=== PATIENT | female | born 1935 | race Caucasian/White ===

== ENCOUNTER → 2016-10-18 | Outpatient (CLI) | payer OTHER ==
[2016-10-18 15:44] LABS: BUN/CREATININE RATIO 24.54 (6-20); CALCIUM 10.3 mg/dL (8.7-10.7); SERUM ALBUMIN 4.5 g/dL (3.5-4.8)
[2016-10-18 17:25] LABS: HEMOGLOBIN A1C 6.58 % (4.2-6.0)
== END ==
LOC: MOB LAB 12:04
PROVIDERS: ATTEND Student in an Organized Health Care Education/Training Program
DX: E11.40 Type 2 diabetes mellitus with diabetic neuropathy, unspecified (principal); E03.9 Hypothyroidism, unspecified; L50.9 Urticaria, unspecified
CPT/HCPCS: 36415; 80053; 83036; 84443

== ENCOUNTER → 2016-10-19 | Outpatient (CLI) | payer OTHER ==
[2016-10-19 15:32] LABS: CREATININE, URINE 17.5 MG/DL (15-500)
== END ==
LOC: MOB LAB 14:08
PROVIDERS: ATTEND Student in an Organized Health Care Education/Training Program
DX: E11.40 Type 2 diabetes mellitus with diabetic neuropathy, unspecified (principal)
CPT/HCPCS: 82043

== ENCOUNTER → 2016-10-31 | Outpatient (CLI) | payer OTHER ==
[2016-10-31 18:28] LABS: BASOPHILS # (AUTO) 0.06 10*3/UL; BASOPHILS % (AUTO) 0.6 % (0-1); EOSINOPHILS # (AUTO) 0.64 10*3/UL; EOSINOPHILS % (AUTO) 6.4 % (0-8); HEMATOCRIT 41.9 % (37.0-47.0); HEMOGLOBIN 14.3 g/dL (12.0-16.0); LYMPHOCYTES # (AUTO) 3.19 10*3/uL; MEAN CORPUSCULAR HEMOGLOBIN 32.1 PG (27-31); MEAN CORPUSCULAR HGB CONC 34.1 g/dL (33-37); MEAN CORPUSCULAR VOLUME 94.2 FL (81-99); MEAN PLATELET VOLUME 9.1 FL (7.4-12.2); MONOCYTES # (AUTO) 0.75 10*3/UL (0.3-0.8); MONOCYTES % (AUTO) 7.5 % (5-15); NEUTROPHILS # (AUTO) 5.33 10*3/UL; NEUTROPHILS % (AUTO) 53.3 % (50-80); RED BLOOD COUNT 4.45 10^6/uL (4.20-5.40)
[2016-10-31 18:32] LABS: PLATELET MORPHOLOGY COMMENT NORMAL MORPHOLOGY (NORM); RBC MORPHOLOGY COMMENT NORMAL MORPHOLOGY (NORM); WBC MORPHOLOGY COMMENT NORMAL MORPHOLOGY (NORM)
[2016-10-31 18:37] LABS: BUN/CREATININE RATIO 22.5 (6-20); CALCIUM 9.9 mg/dL (8.7-10.7); SERUM ALBUMIN 4.5 g/dL (3.5-4.8)
== END ==
LOC: MOB LAB 18:08
PROVIDERS: ATTEND Physician Assistant
DX: L29.8 Other pruritus (principal); L28.2 Other prurigo
CPT/HCPCS: 36415; 80053; 85025

== ENCOUNTER 2017-05-01 23:17 | Inpatient (IN) ==
--- NOTE | 2017-05-01 23:26 | PDOC ---
Nausea/Vomiting/Diarrhea HPI - General Chief Complaint: Nausea / Vomiting / Diarrhea Stated Complaint: nausea/ dry hieves Date Seen by Provider: 05/01/17 Time Seen by Provider: 23:15 Source: POSITIVE: Patient Exam Limitations: POSITIVE: No limitations Nurse's Notes Reviewed & Considered: Yes - History of Present Illness Initial Comments: This is a pleasant 81-year-old female complaining of nausea vomiting and abdominal pain. Patient with nausea that has been ongoing since last night with vomiting and now dry heaves. Does have a headache, denies sore throat, no chest pain or shortness of breath, no hematuria or dysuria, she did have an episode of diarrhea yesterday. sHe does have myalgias, she states she has subjective fevers, chills and sweats. Body Location Affected: REPORTS: Head, Abdomen Timing: REPORTS: Constant Duration: <24 hours Severity: Moderate Quality: REPORTS: Aching, Cramping Abdominal Pain Onset Location: REPORTS: RUQ Abdominal Pain Radiation: REPORTS: Epigastric, Periumbilical Context: REPORTS: None Modifying Factors: improves with: Nothing Associated Symptoms: REPORTS: Vomiting, Diarrhea, Cramping, Epigastric Pain, RUQ Pain Similar Symptoms Previously: No Recent Care Received: REPORTS: Denies Any Prior Injuries Related to Current Complaint?: No - Patient Home Medications Home Medications: Home Medications Calcium Carbonate/Vitamin D3 [Calcium 500 + Vit D Caplet] 1 tab PO DAILY Multivitamin [One Daily Multivitamin] 1 tab PO DAILY 09/28/12 Ascorbic Acid [Vitamin C] 1,000 mg PO QD tab 06/09/15 [place]-3 Fatty Acids [Fish Oil] 300 mg PO QD cap 06/09/15 Celecoxib [Celebrex] 1 cap PO BID #180 cap 03/15/16 Metformin HCl 1 tab PO BID #180 tab 03/15/16 Cranberry 400 mg PO DAILY 06/08/16 Darifenacin Hydrobromide [Enablex] 15 mg PO DAILY #30 tab 10/18/16 Levothyroxine Sodium [Synthroid] 1 tab PO QD #90 tab 02/19/17 Lisinopril 1 tab PO DAILY #90 tab 02/19/17 Pravastatin Sodium 1 tab PO DAILY #90 tab 03/26/17 Metformin HCl 1 tab PO BID #180 tab 03/29/17 - Patient Allergies Allergies/Adverse Reactions: Allergies 3 Allergy/AdvReac Type Severity Reaction Status Date / Time No Known Allergies Allergy Verified 05/01/17 23:29 Past Medical History - heen HEENT History: Hard of Hearing, Dentures/Partials Cardiovascular History: Hyperlipidemia Additional Cardiovasular History: CARADIOMEGALY Respiratory History: Denies History Gastrointestinal History: Peptic Ulcer Disease, Gallbladder Disease, Hepatitis Additional Gastrointestinal History: HEPATITIS TREATED IN 1958 (hep A, vomiting , diarhhea Genitourinary History: Incontinence Endocrine History: Type 2 Diabetes (oral), Hypothyroidism Musculoskeletal History: Arthritis, Osteoporosis, Back Pain, Back Injury 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 BACK SURGERY (L3-L5 FUSION), NECK SURGERY, CHOLECYSTECTOMY/APPY Anesthesia Reactions: No Malignant Hyperthermia: No Significant Family History: Heart disease, Cancer, Diabetes, Hypertension, Seizures ROS - Limitations ROS Limitations: No Limitations Constitution: REPORTS: Chills, Fever, Diaphoresis Cardiovascular: REPORTS: Denies Cardiac Symptoms Respiratory: REPORTS: Denies Resp Symptoms Neurological: REPORTS: Headache Gastrointestinal: REPORTS: Abdominal Pain, Nausea, Vomitting, Diarrhea Endocrine: REPORTS: Denies Symptoms Musculoskeletal: REPORTS: Muscle Aches Genitourinary: REPORTS: Denies Symptoms Eyes: REPORTS: Denies Symptoms ENT: REPORTS: Denies Symptoms Skin: REPORTS: Denies Skin Symptoms Lympathic: REPORTS: Denies Lympathic Symptoms Immunologic: POSITIVE: Denies Symptoms Psychiatric: POSITIVE: Denies Psych Symptoms Nausea/Vomiting/Diarrhea Exam - General Appearance General Appearance: POSITIVE: Alert, Cooperative, No Evidence of Trauma, Moderate Distress - HEENT HEENT: POSITIVE: Head Inspection Nml, Eyes Inspection Nml, Ears Inspection Nml, Nose Inspection Nml, Oral/Dental Inspect. Nml, Pharynx Inspect. Nml, PERRL, EOMI - Neck Neck: POSITIVE: Supple, Normal Inspection, Non Tender - Respiratory Respiratory: POSITIVE: No Respiratory Distress, Breath Sounds Normal, Chest Non- Tender - Cardiovascular Cardiovascular: POSITIVE: Regular Rate and Rhythm, Heart Sounds Normal, Equal Pulses, Strong Pulses Peripheral Pulses: Radial (R): 4+, Radial (L): 4+, Dorsalis-pedis (R): 4+, Dorsalis-pedis (L): 4+ - Chest Chest: POSITIVE: Non Tender - Abdomen Abdomen: Soft: (All Quadrants), Normal Bowel Sounds: (All Quadrants), Denies Tenderness: (RLQ), (LLQ), Tenderness Noted: (RUQ), (LUQ) N/V/D Progress - Results Reviewed by me Xrays/CTs/US Reviewed by me: Yes Discussed with Radiologist: Yes Lab Results Reviewed by Me: Yes CBC and BMP: 05/01/17 23:25 05/01/17 23:25 - Patient's Progress Pain Medication Addressed: POSITIVE: Yes Re-examine Time: 02:11 Status: POSITIVE: Improved MDM / ED Course: Patient was examined, an IV started, blood drawn and sent to the lab for studies , CT scan of her abdomen was obtained. Findings: CBC shows a white count of 21. Comprehensive metabolic panel reveals and ALT of 53. Lipase and amylase are normal. Magnesium is low at 1.3. CT scan of her abdomen shows acute pancreatitis. Assessment: Abdominal pain with an early acute pancreatitis. Plan: Admission, nothing by mouth, pain medication, IV fluids. - Consult Consult (If Yes, Name of Consulting MD & Time Called): Yes (Dr. Jimenes. 0155 hr) Consulting MD will see pt:: POSITIVE: [facility] [place] Admit Counseled: POSITIVE: Patient, Family, RE: Lab Results, RE: Radiology Results, RE : DX Patient Care Time - Estimated PCT Patient Care Time (In Minutes): 45 Vital Signs - Recent Vital Signs Vital Signs: Vital Signs (Last 8 hours) Temp Pulse Resp BP Pulse Ox 05/01/17 23:22 100.8 F H 110 H 18 152/86 92 05/01/17 23:17 97.8 F 119 H 18 152/86 91 - VS Reviewed Vital Signs Reviewed: Yes Discharge Clinical Impression: Pancreatitis Discharge Disposition: Admit to Inpatient Condition: Fair Follow Up With: BENIGNO ARROYO [Primary Care Provider] - Date Decision to Admit to Inpatient: 05/02/17 Time Decision to Admit to Inpatient: 01:55
[2017-05-01] MEDS ORDERED: Sodium Chloride 0.9% 1,000 ML ONE (23:27)
[2017-05-01] MEDS ORDERED: ONDANSETRON 4 MG/2 ML VIAL IVP ONE (23:27)
[2017-05-01] MEDS ORDERED: MORPHINE SULFATE 4 MG/1 ML IVP ONE (23:27)
[2017-05-01] MEDS ORDERED: Sodium Chloride 0.9% 1,000 ML PRIMARY IV ONE (23:27)
[2017-05-01 23:41] LABS: BASOPHILS # (AUTO) 0.05 10*3/UL; BASOPHILS % (AUTO) 0.2 % (0-1); EOSINOPHILS # (AUTO) 0.04 10*3/UL; EOSINOPHILS % (AUTO) 0.2 % (0-8); Hemoglobin [HGB] 14.1 g/dL (12.0-16.0); LYMPHOCYTES # (AUTO) 1.74 10*3/uL; MEAN CORPUSCULAR HEMOGLOBIN 32.6 PG (27-31); MEAN CORPUSCULAR HGB CONC 34.4 g/dL (33-37); MEAN CORPUSCULAR VOLUME 94.7 FL (81-99); MEAN PLATELET VOLUME 9.5 FL (7.4-12.2); MONOCYTES # (AUTO) 1.41 10*3/UL (0.3-0.8); MONOCYTES % (AUTO) 6.8 % (5-15); NEUTROPHILS # (AUTO) 17.59 10*3/UL; NEUTROPHILS % (AUTO) 84.3 % (50-80); RED BLOOD COUNT 4.33 10^6/uL (4.20-5.40)
[2017-05-01 23:46] LABS: BLOOD UREA NITROGEN 20 mg/dL (7-22); MAGNESIUM 1.5 mg/dL (1.6-2.4); SERUM ALBUMIN 4.4 g/dL (3.5-4.8)
[2017-05-01 23:48] LABS: PLATELET MORPHOLOGY COMMENT NORMAL MORPHOLOGY (NORM); RBC MORPHOLOGY COMMENT NORMAL MORPHOLOGY (NORM); WBC MORPHOLOGY COMMENT NORMAL MORPHOLOGY (NORM)
[2017-05-02] MEDS ORDERED: Magnesium Sulfate 2gm (Premix) 2 GM/50 ML BAG IV ONE (00:05)
--- NOTE | 2017-05-02 01:33 | DI ---
PROCEDURE: CT ABDOMEN + PELVIS With Contrast HISTORY: 81-year-old female with abdominal pain and nausea. COMPARISON: CT abdomen and pelvis 09/27/2012 TECHNIQUE: After administration of 75 mL of Isovue-300 contrast material intravenously, CT imaging was obtained through the abdomen and pelvis. Coronal and sagittal reformations were performed. FINDINGS: Lung bases: Bilateral atelectasis. There are atherosclerotic calcifications of the thoracic aorta and coronary arteries. Abdomen: The liver demonstrates diffuse low density, consistent with hepatic steatosis. The liver is moderately enlarged with right lobe measuring approximately 19 centimeters in craniocaudal dimension. Cholecystectomy clips are identified at the gallbladder fossa. Unchanged splenic calcifications are likely related to prior granulomatous exposure. Peripancreatic stranding and trace free fluid adjacent to the pancreatic head and uncinate process. Associated mesenteric stranding and trace free fluid as well. Findings are likely due to acute pancreatitis. There are a few associated small and mildly enlarged adjacent lymph nodes. There is no evidence of pancreatic fluid collection at this time. The left adrenal gland is somewhat nodular, but unchanged. The right adrenal gland is unremarkable. Evaluation of the kidneys is within normal limits. Evaluation of the GI tract is limited by lack of distention and retained stool. No bowel obstruction. The appendix is not reliably identified. There are multiple colonic diverticula. No free air. The abdominal vasculature demonstrates atherosclerotic calcifications. Pelvis: The urinary bladder is unremarkable for degree of distension. The uterus and bilateral nonenlarged ovaries are identified. No free fluid, free air or significant pelvic adenopathy. The pelvic vasculature demonstrates atherosclerotic calcifications. Laxity of the pelvic floor. There is an approximately 3.5 centimeter fat-containing periumbilical hernia. Bones: Chronic posttraumatic deformity of the left eleventh rib posteriorly. Degenerative changes in the spine and pelvis. Lumbosacral fusion and laminectomy, similar to prior, without evidence of acute hardware complication. IMPRESSION: 1. Evidence of acute pancreatitis. No evidence of pancreatic fluid collection. 2. Colonic diverticulosis without CT evidence of acute diverticulitis. 3. Hepatic steatosis. Moderate hepatomegaly. 4. Other findings as detailed above.
[2017-05-02 01:51] LABS: LIPASE 92 IU/L (23-300)
[2017-05-02] MEDS ORDERED: ONDANSETRON 4 MG/2 ML VIAL IVP PRN (02:52)
[2017-05-02] MEDS ORDERED: NORMAL SALINE 10 ML SYRINGE FLUSH IVP PRN (02:52)
[2017-05-02] MEDS ORDERED: LIDOCAINE W/ SODIUM BICARB 0.5 ML SYR SUBD PRN (02:52)
--- NOTE | 2017-05-02 03:02 | PDOC ---
HPI - History of Present Illness Date and Time of Service: 05/02/2017 3 AM Chief Complaint: Abdominal pain and dry heaving of one day duration and diarrhea for 2 days ago History of Present Illness: This is an 81 years old female with medical history significant for history of diabetes on Glucophage, hypothyroidism and hypercholesterolemia who came into the hospital with history of diarrhea that started 2 days ago she had about 4 bowel movements where liquid, no blood then last night started to have abdominal pain felt in the right upper quadrant and goes to the back was severe and associated with dry heaving pain persisted and because of that she came into the ER. She thought that she also had some fever but she didn't check her temperature and because of that she came into the ER. In the ER she was given fluids evaluation revealed elevated white count and elevated lactate and a CT of the abdomen showed peripancreatic inflammatory changes suggestive of pancreatitis and also there is some mesenteric stranding and she was admitted. She said the pain when she came in was severe but she rates her pain at the time I saw her was 4 out of 10 and she is denying other symptoms. The last time she had a bowel movement was yesterday morning. There was no bleeding. Past Medical History Medical History: 1. Diabetes. 2. Hypothyroidism. 3. Hypercholesterolemia. 4. Osteoporosis. 5. History of hepatitis A in the 50s. 6. History of previous pancreatitis Surgical History: 1. Cholecystectomy. 2. Appendectomy. 3. Recent right cataract surgery Family History: Reviewed an Not Pertinent Past Social History: She used to smoke, doesn't drink and no drugs. Tobacco Use: Former Smoker In the Past 12 Months, Have Used or Abuse Any of the Following Substance: None Alcohol Use: None Medication / Allergies Home Medications: Home Medications Medication Instructions Recorded Confirmed Type Calcium Carbonate/Vitamin D3 1 tab PO DAILY 09/28/12 05/01/17 History [Calcium 500 + Vit D Caplet] Multivitamin [One Daily 1 tab PO DAILY 09/28/12 05/01/17 History Multivitamin] Ascorbic Acid [Vitamin C] 1,000 mg PO QD tab 06/09/15 05/01/17 History [place]-3 Fatty Acids [Fish Oil] 300 mg PO QD cap 06/09/15 05/01/17 History Celecoxib [Celebrex] 1 cap PO BID #180 cap 03/15/16 05/01/17 History Metformin HCl 1 tab PO BID #180 tab 03/15/16 06/08/16 Clinic Cranberry 400 mg PO DAILY 06/08/16 05/01/17 History Darifenacin Hydrobromide [Enablex] 15 mg PO DAILY #30 tab 10/18/16 05/01/17 Rx Levothyroxine Sodium [Synthroid] 1 tab PO QD #90 tab 02/19/17 05/01/17 Rx Lisinopril 1 tab PO DAILY #90 tab 02/19/17 05/01/17 Rx Pravastatin Sodium 1 tab PO DAILY #90 tab 03/26/17 05/01/17 Clinic Metformin HCl 1 tab PO BID #180 tab 03/29/17 05/01/17 Clinic Allergies/Adverse Reactions: Allergies 3 Allergy/AdvReac Type Severity Reaction Status Date / Time No Known Allergies Allergy Verified 05/02/17 06:45 Review of Systems - Review of Systems All Systems: Reviewed & No Additional Complaints Except as Stated Exam - Vitals Vital Signs: Vital Signs Oxygen Flow Rate 2 Oxygen Delivery Method Nasal Cannula Height 5 ft 2 in Weight 177 lb 2 oz - General General Appearance: No Acute Distress, Cooperative, Obese - Head Head Exam: Normal Inspection, Atraumatic - Eye Eye Exam: POSITIVE: Normal Appearance - ENT ENT Exam: POSITIVE: Normal Exam - Neck Neck Exam: Normal Inspection - Respiratory Respiratory Exam: POSITIVE: Clear to Auscultation - Bilaterally - Cardiovascular Cardiovascular Exam: POSITIVE: RRR - GI/Abdominal GI/Abdominal Exam: POSITIVE: Normal Bowel Sounds, Soft Additional GI/Abdominal Exam Details: Abdomen is soft there is some tenderness in the right upper quadrant there is no rebound or rigidity. Bowel sounds present - Rectal Rectal Exam: POSITIVE: Deferred - External Exam: POSITIVE: Deferred - Extremities Extremities Exam: POSITIVE: Normal Inspection - Back Back Exam: POSITIVE: Normal Inspection - Neurological Neurological Exam: POSITIVE: Alert, Oriented x 3, CN II-XII Intact, Speech Intact / Clear, Moves All Extremities Equally - Psychiatric Psychiatric Exam: POSITIVE: Normal Affect Results - Labs CBC and BMP: 05/02/17 07:07 05/02/17 07:07 - Imaging Status: Report Reviewed by Me (CT showed evidence of acute pancreatitis. No evidence of a Fluid collection. Colonic diverticulosis without CT evidence of acute diverticulitis. Hepatic steatosis. Moderate hepatomegaly) Assessment and Plan - Patient Problems (1) Pancreatitis Current Visit: Yes Status: Acute Comment: The CT raises possibility of pancreatitis however the lipase is normal. So I am not sure about the accuracy of the diagnosis. I think will give her fluid repeat her labs including lipase is in the morning. Code(s): K85.90 - Acute pancreatitis without necrosis or infection, unspecified (2) Sepsis Current Visit: Yes Status: Acute Comment: Her white count is elevated, she is tachycardic and elevated lactate raises the possibility of sepsis this may be secondary to pancreatitis but as I said the normal lipase doesn't go with it, she doesn't drink and her gallbladder was removed before. I think will give her fluid and I think will start her on antibiotics, blood culture was taken will send UA and culture if indicated. Will repeat her labs may consult surgery in the morning. Will send stool culture and stool for C. difficile Code(s): A41.9 - Sepsis, unspecified organism (3) Diabetes Current Visit: Yes Status: Acute Comment: She is on metformin but will hold it as she got some contrast will keep an eye on her blood sugar. Code(s): E11.9 - Type 2 diabetes mellitus without complications
[2017-05-02] MEDS: Sodium Chloride 0.9% 1,000 ML PRIMARY IV SCH ×3 (04:00→21:20)
[2017-05-02] MEDS: Piperacillin/Tazobactam Inj 3.375 GM in Sodium Chloride 0.9% 100 ML IV SCH ×2 (04:00→09:31)
[2017-05-02] MEDS: MORPHINE SULFATE 2 MG/1 ML IVP PRN (04:19)
[2017-05-02 05:08] LABS: BILIRUBIN,URINE NEGATIVE (NEG); CLARITY,URINE CLEAR (CLEAR); COLOR,URINE YELLOW (Y); GLUCOSE, URINE (UA) NEGATIVE (NEG); NITRATE,URINE NEGATIVE (NEG); OCCULT BLOOD,URINE NEGATIVE (NEG); PROTEIN,URINE NEGATIVE (NEG); UROBILINOGEN,URINE 0.2 EU/dL (0.2)
[2017-05-02 05:14] LABS: URINE SAMPLE TYPE CLEAN CATCH URINE
[2017-05-02 07:14] LABS: BASOPHILS # (AUTO) 0.03 10*3/UL; BASOPHILS % (AUTO) 0.2 % (0-1); EOSINOPHILS # (AUTO) 0.24 10*3/UL; EOSINOPHILS % (AUTO) 1.8 % (0-8); Hematocrit [HCT] 38.3 % (37.0-47.0); Hemoglobin [HGB] 12.9 g/dL (12.0-16.0); LYMPHOCYTES # (AUTO) 1.59 10*3/uL; MEAN CORPUSCULAR HEMOGLOBIN 32.3 PG (27-31); MEAN CORPUSCULAR HGB CONC 33.7 g/dL (33-37); MEAN PLATELET VOLUME 9.4 FL (7.4-12.2); MONOCYTES % (AUTO) 6.1 % (5-15); NEUTROPHILS # (AUTO) 10.51 10*3/UL; NEUTROPHILS % (AUTO) 79.6 % (50-80); RED BLOOD COUNT 3.99 10^6/uL (4.20-5.40)
[2017-05-02 07:22] LABS: PLATELET MORPHOLOGY COMMENT NORMAL MORPHOLOGY (NORM); RBC MORPHOLOGY COMMENT NORMAL MORPHOLOGY (NORM); WBC MORPHOLOGY COMMENT NORMAL MORPHOLOGY (NORM)
[2017-05-02 07:25] LABS: BLOOD UREA NITROGEN 18 mg/dL (7-22); SERUM ALBUMIN 3.7 g/dL (3.5-4.8)
[2017-05-02 07:42] LABS: LIPASE 106 IU/L (23-300)
--- NOTE | 2017-05-02 09:54 | CONSULT ---
Consult Note - Consult Consult Date: 05/02/17 Reason for Consult: PreOp Consulation : General Surgery Requesting Physician: Dr. Jimenes Primary Care Provider: Power Bonner MD - History of Present Illness History of Present Illness: This is a-year-old female who is admitted to the hospital last night for abdominal pain and nausea and vomiting. Patient states that she this all started 3 days ago with diarrhea. She is having 3-4 loose stools in a row. She denies any blood in the diarrhea. It was not black or tarry looking. This is now that point was she developed epigastric abdominal pain radiating straight to her back. This is a dull pain. She says is definitely different when she had pancreatitis. She then developed dry heaves. She states she has not actually thrown up. She started running a temperature. She came in having a 20,000 white count. Her lactic acid was elevated. She is admitted start IV fluids and antibiotics. Today her pain is better. They have not recorded the temperature since emergency department. Her white count is down to 13,000 and lactic acid is 2.3 which is lower than was last night. Her amylase and lipase are normal. CT scan shows some stranding around the pancreas. Review of Systems - Review of Systems All Systems: Reviewed & No Additional Complaints Except as Stated Past Medical History Medical History: 1. Diabetes. 2. Hypothyroidism. 3. Hypercholesterolemia. 4. Osteoporosis. 5. History of hepatitis A in the 50s. 6. History of previous pancreatitis Surgical History: 1. Cholecystectomy. 2. Appendectomy. 3. Recent right cataract surgery Family History: Reviewed an Not Pertinent Past Social History: She used to smoke, doesn't drink and no drugs. Tobacco Use: Former Smoker In the Past 12 Months, Have Used or Abuse Any of the Following Substance: None Alcohol Use: None Medication / Allergies Home Medications: Home Medications Medication Instructions Recorded Confirmed Type Calcium Carbonate/Vitamin D3 1 tab PO DAILY 09/28/12 05/01/17 History [Calcium 500 + Vit D Caplet] Multivitamin [One Daily 1 tab PO DAILY 09/28/12 05/01/17 History Multivitamin] Ascorbic Acid [Vitamin C] 1,000 mg PO QD tab 06/09/15 05/01/17 History [place]-3 Fatty Acids [Fish Oil] 300 mg PO QD cap 06/09/15 05/01/17 History Celecoxib [Celebrex] 1 cap PO BID #180 cap 03/15/16 05/01/17 History Metformin HCl 1 tab PO BID #180 tab 03/15/16 06/08/16 Clinic Cranberry 400 mg PO DAILY 06/08/16 05/01/17 History Darifenacin Hydrobromide [Enablex] 15 mg PO DAILY #30 tab 10/18/16 05/01/17 Rx Levothyroxine Sodium [Synthroid] 1 tab PO QD #90 tab 02/19/17 05/01/17 Rx Lisinopril 1 tab PO DAILY #90 tab 02/19/17 05/01/17 Rx Pravastatin Sodium 1 tab PO DAILY #90 tab 03/26/17 05/01/17 Clinic Metformin HCl 1 tab PO BID #180 tab 03/29/17 05/01/17 Clinic Allergies/Adverse Reactions: Allergies 3 Allergy/AdvReac Type Severity Reaction Status Date / Time No Known Allergies Allergy Verified 05/02/17 06:45 Results - Labs CBC and BMP: 05/02/17 07:07 05/02/17 07:07 Additional Lab Results: 05/01/17 05/01/17 05/01/17 23:25 23:25 23:25 WBC 20.88 H Hgb 14.1 Hct 41.0 Sodium 135 Potassium 4.6 Chloride 99 Carbon Dioxide 21 L Anion Gap 15 BUN 20 Creatinine 1.0 Glucose 231 H Lactic Acid Calcium 10.0 Magnesium 1.5 L Total Bilirubin 0.6 AST 35 ALT 53 H Alkaline Phosphatase 76 Total Protein 7.3 Amylase 72 Lipase 92 05/02/17 00:07 WBC Hgb Hct Sodium Potassium Chloride Carbon Dioxide Anion Gap BUN Creatinine Glucose Lactic Acid 3.1 H Calcium Magnesium Total Bilirubin AST ALT Alkaline Phosphatase Total Protein Amylase Lipase Exam - Vitals Vital Signs: Vital Signs Temperature 98.4 F Temperature Source Oral Pulse Rate [Pulse Oximeter 99 Right] Respiratory Rate 20 Blood Pressure [Left Arm] 124/58 Pulse Ox 91 Oxygen Flow Rate 2 Oxygen Delivery Method Nasal Cannula Height 5 ft 2 in Weight 177 lb 2 oz - General General Appearance: No Acute Distress, Cooperative - Head Head Exam: Normocephalic - Neck Neck Exam: Full ROM - Respiratory Respiratory Exam: POSITIVE: Clear to Auscultation - Bilaterally, Breathing Non Labored - Cardiovascular Cardiovascular Exam: POSITIVE: RRR, No Murmur, No Clicks, No Gallops - GI/Abdominal GI/Abdominal Exam: POSITIVE: Normal Bowel Sounds, Non Tender, Non Distended, Soft, No Masses, No Hepatomegaly, No Splenomegaly - Rectal Rectal Exam: POSITIVE: Deferred Assessment and Plan - Patient Problems (1) Abdominal pain Current Visit: Yes Status: Acute Code(s): R10.9 - Unspecified abdominal pain (2) Diarrhea Current Visit: Yes Status: Acute Code(s): R19.7 - Diarrhea, unspecified - Assessment / Plan Additional Assessment/Plan Details: At this point do not think patient has acute surgical abdomen. We'll need to review the CAT scans with Dr. Noel. Given the history of the diarrhea persisted abdominal pain I think the patient picked up a gastrointestinal bug and then proceeded to get dehydrated. This possibility she developed mild mesenteric ischemia. I do not think is a full on infarction. Patient may also have a duodenal ulcer that has perforated retroperitoneally. I would continue antibiotics and IV fluids. Would start a PPI. Should get a stool cultures and also C. difficile
[2017-05-02] MEDS: cefTRIAXone Inj 2 GM in Sodium Chloride 0.9% 100 ML IV SCH (10:03)
[2017-05-02] MEDS: Pantoprazole Inj 40 MG in Normal Saline Flush 10 ML IVP SCH (10:39)
[2017-05-02] MEDS: metroNIDAZOLE 500mg (Premix) 500 MG/100 ML BAG IV SCH ×2 (10:47→17:50)
[2017-05-02] MEDS: traMADol 50 MG TABLET PO PRN (13:51)
[2017-05-02] MEDS: DIFLUPREDNATE RIGHT EYE SCH (20:53)
[2017-05-02] MEDS: Pravastatin Tab 20 MG TAB PO SCH (20:53)
[2017-05-03] MEDS: metroNIDAZOLE 500mg (Premix) 500 MG/100 ML BAG IV SCH ×3 (02:02→17:19)
[2017-05-03] MEDS: Sodium Chloride 0.9% 1,000 ML PRIMARY IV SCH ×3 (04:49→18:02)
[2017-05-03] MEDS: LEVOTHYROXINE 25 MCG TABLET PO SCH (04:50)
[2017-05-03 05:33] LABS: BASOPHILS # (AUTO) 0.03 10*3/UL; BASOPHILS % (AUTO) 0.3 % (0-1); EOSINOPHILS % (AUTO) 5.8 % (0-8); Hematocrit [HCT] 38.5 % (37.0-47.0); Hemoglobin [HGB] 12.8 g/dL (12.0-16.0); LYMPHOCYTES # (AUTO) 2.49 10*3/uL; MEAN CORPUSCULAR HEMOGLOBIN 32.5 PG (27-31); MEAN CORPUSCULAR HGB CONC 33.2 g/dL (33-37); MEAN CORPUSCULAR VOLUME 97.7 FL (81-99); MEAN PLATELET VOLUME 9.9 FL (7.4-12.2); MONOCYTES # (AUTO) 0.84 10*3/UL (0.3-0.8); MONOCYTES % (AUTO) 9.7 % (5-15); NEUTROPHILS # (AUTO) 4.78 10*3/UL; NEUTROPHILS % (AUTO) 55.3 % (50-80); RED BLOOD COUNT 3.94 10^6/uL (4.20-5.40)
[2017-05-03 05:40] LABS: BLOOD UREA NITROGEN 13 mg/dL (7-22); BUN/CREATININE RATIO 14.44 (6-20); SERUM ALBUMIN 3.5 g/dL (3.5-4.8)
[2017-05-03 05:51] LABS: PLATELET MORPHOLOGY COMMENT NORMAL MORPHOLOGY (NORM); RBC MORPHOLOGY COMMENT NORMAL MORPHOLOGY (NORM); WBC MORPHOLOGY COMMENT NORMAL MORPHOLOGY (NORM)
--- NOTE | 2017-05-03 08:26 | PDOC(PROG) ---
Date and Time of Service: 05/03/2017 8:25 AM Interval History: Subjective She said the pain that brought her here seemed to be improved but today she feels bloated. She said she always had some pain in right upper quadrant but it was severe when she came on the day of admission and that seemed to be improved. But what is bothering her the feeling of being bloated and she didn' t have a bowel movement since being here. Objective : Data - Labs CBC and BMP: 05/03/17 04:55 05/03/17 04:55 Objective : Exam - General General Appearance: No Acute Distress, Cooperative - Head Head Exam: Normal Inspection - Eye Eye Exam: Normal Appearance - ENT ENT Exam: Normal Exam - Neck Neck Exam: Normal Inspection - Respiratory Respiratory Exam: Clear to Auscultation - Bilaterally - Cardiovascular Cardiovascular Exam: RRR - GI/Abdominal Additional GI/Abdominal Exam Details: Abdomen is still soft there is some tenderness in the epigastrium and mid right abdomen. Bowel sound present. There is some distention noted - Rectal Rectal Exam: Deferred - External Exam: Deferred - Extremities Extremities Exam: Normal Inspection - Back Back Exam: Normal Inspection - Neurological Neurological Exam: Alert, Oriented x 3, CN II-XII Intact, Moves All Extremities Equally - Psychiatric Psychiatric Exam: Normal Affect - Integumentary Integumentary Exam: Normal Color Assessment and Plan - Patient Problems (1) Pancreatitis Current Visit: Yes Status: Acute Comment: Not sure whether she had pancreatitis as her lipase remained normal. There is stranding noted in the mesentry when spoke with the radiologist Dr. Noel yesterday this inflammation either from the pancreas or from the duodenum. She did tolerate oral clear liquids will cut back on the fluid. However there is distention the abdomen today so I think will repeat her CT. Dr. Noel also did suggest that we probably need to repeat the CAT scan in few weeks postdischarge as a follow-up. Code(s): K85.90 - Acute pancreatitis without necrosis or infection, unspecified (2) Sepsis Current Visit: Yes Status: Acute Comment: Seems to resolve. Her white count is down to normal. Continue IV antibiotics for another day. Code(s): A41.9 - Sepsis, unspecified organism (3) Diabetes Current Visit: Yes Status: Acute Comment: Continue holding metformin and she had contrast yesterday Code(s): E11.9 - Type 2 diabetes mellitus without complications
[2017-05-03] MEDS: Pantoprazole Inj 40 MG in Normal Saline Flush 10 ML IVP SCH (08:32)
[2017-05-03] MEDS: DIFLUPREDNATE RIGHT EYE SCH ×2 (08:45→20:15)
[2017-05-03] MEDS: cefTRIAXone Inj 2 GM in Sodium Chloride 0.9% 100 ML IV SCH (08:55)
[2017-05-03] MEDS ORDERED: FATTY ACIDS PO SCH (09:00)
[2017-05-03] MEDS ORDERED: OMEGA PO SCH (09:00)
[2017-05-03] MEDS: traMADol 50 MG TABLET PO PRN ×2 (09:03→19:28)
--- NOTE | 2017-05-03 11:40 | PDOC(PROG) ---
Date and Time of Service: 05/03/2017 1140 Interval History: Patient states that she still having right upper quadrant abdominal pain. No fevers. She's tolerating diet Objective : Data - Labs CBC and BMP: 05/03/17 04:55 05/03/17 04:55 - Vital Signs Vital Signs and I&O: Vital Signs - Last Taken Temperature 98 F 05/03/17 11:29 Pulse Rate 87 05/03/17 11:29 Respiratory Rate 18 05/03/17 11:29 Blood Pressure 118/56 05/03/17 11:29 Pulse Ox 98 05/03/17 11:29 Intake and Output (24hr x 4 totals) 05/01/17 05/02/17 05/03/17 05/04/17 05:59 05:59 05:59 05:59 Intake Total 5701 / 5701 240 / 240 Output Total 200 / 200 2900 / 2900 500 / 500 Balance -200 / 800 2801 / 2801 -260 / -260 Objective : Exam - General General Appearance: No Acute Distress - Respiratory Respiratory Exam: Clear to Auscultation - Bilaterally, Breathing Non Labored - GI/Abdominal GI/Abdominal Exam: Normal Bowel Sounds, Non Tender, Non Distended, Soft Assessment and Plan - Patient Problems (1) Abdominal pain Current Visit: Yes Status: Acute Code(s): R10.9 - Unspecified abdominal pain (2) Diarrhea Current Visit: Yes Status: Acute Code(s): R19.7 - Diarrhea, unspecified - Assessment / Plan Additional Assessment/Plan Details: Patient overall think is getting better. She has a CT scan scheduled for later today. This is no unremarkable are no change we'll plan to do an EGD on Saturday
--- NOTE | 2017-05-03 18:43 | DI ---
CT ABDOMEN SCAN WITHOUT IV CONTRAST, 05/03/2017 8:23 AM : Clinical History: Abdominal distention with tenderness. Previous Exam: 05/02/2017. Scans are performed from the lower lung bases through the liver and kidneys without IV contrast. Sagi ttal and coronal reformatted images are generated. No oral or rectal contrast was ordered. The lung bases are clear. There is hepatomegaly with fatty infiltration. The patient is status post c holecystectomy and the common bile duct measures 6 mm. There is persistent inflammatory/infiltrative change associated with the third part of the duodenum and extending inferiorly into the mesentery. No free fluid collection is present. The overall appearance is similar to the exam the day before. This mesenteric inflammatory response can be seen with sclerosing mesenteritis or an inflammatory respons e to an abnormality of the duodenum. Less likely these changes are secondary to pancreatitis. There a re extensive calcifications in the celiac axis and in the splenic as well as the proper hepatic arter ies and at the origin of the superior mesenteric artery. Ischemia of the third portion of the duodenu m therefore cannot entirely be excluded. Both kidneys are normal in size, shape, position and contour . There is no hydronephrosis or hydroureter. No renal or ureteral calculi are present. There are no a bnormal retrocrural or periaortic nodes. No ascites is present. READIN. There is inflammatory/infiltrative change involving the mesentery associated with the SMA and SMV and in proximity to the third portion of the duodenum. This pattern is virtually unchanged from the previous exam the day before. The differential would include sclerosing mesenteritis, ischemia of the duodenum in view of the calcifications in the celiac axis and SMA, and a true inflammation of the du odenum or pancreatitis. 2. Hepatomegaly with fatty infiltration. CT PELVIS SCAN WITHOUT IV CONTRAST, 05/03/2017 8:23 AM : Clinical History: See above. Previous Exam: 05/02/2017. Scans are performed from the inferior margin of the liver and kidneys to the symphysis pubis without IV contrast. There is no free fluid collection and there is no adenopathy. The appendix is not visualized but ther e is no inflammatory mass either in the cecal tip or in the right lower quadrant. The patient may in fact be status post appendectomy. The small bowel and terminal ileum are normal. 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 The colon is also normal. There is a small to moderate umbilical hernia through which only mesenteric fat has herniated. The uterus and both ovaries are atrophic but otherwise norm al. The patient has had previous extensive lumbar surgery. READING: Normal CT pelvis scan.
[2017-05-03] MEDS: Pravastatin Tab 20 MG TAB PO SCH (20:15)
[2017-05-04] MEDS: traMADol 50 MG TABLET PO PRN (01:32)
[2017-05-04] MEDS: metroNIDAZOLE 500mg (Premix) 500 MG/100 ML BAG IV SCH ×3 (01:39→17:53)
[2017-05-04] MEDS: LEVOTHYROXINE 25 MCG TABLET PO SCH (04:33)
[2017-05-04 05:26] LABS: BASOPHILS # (AUTO) 0.05 10*3/UL; BASOPHILS % (AUTO) 0.7 % (0-1); EOSINOPHILS # (AUTO) 0.34 10*3/UL; EOSINOPHILS % (AUTO) 4.9 % (0-8); Hematocrit [HCT] 36.6 % (37.0-47.0); Hemoglobin [HGB] 12.1 g/dL (12.0-16.0); LYMPHOCYTES # (AUTO) 1.88 10*3/uL; MEAN CORPUSCULAR HEMOGLOBIN 31.9 PG (27-31); MEAN CORPUSCULAR HGB CONC 33.1 g/dL (33-37); MEAN CORPUSCULAR VOLUME 96.6 FL (81-99); MEAN PLATELET VOLUME 9.9 FL (7.4-12.2); MONOCYTES # (AUTO) 0.76 10*3/UL (0.3-0.8); NEUTROPHILS % (AUTO) 56.2 % (50-80); RED BLOOD COUNT 3.79 10^6/uL (4.20-5.40)
[2017-05-04 05:28] LABS: PLATELET MORPHOLOGY COMMENT NORMAL MORPHOLOGY (NORM); RBC MORPHOLOGY COMMENT NORMAL MORPHOLOGY (NORM); WBC MORPHOLOGY COMMENT NORMAL MORPHOLOGY (NORM)
[2017-05-04 05:45] LABS: BLOOD UREA NITROGEN 9 mg/dL (7-22); SERUM ALBUMIN 3.3 g/dL (3.5-4.8)
--- NOTE | 2017-05-04 08:07 | PDOC(PROG) ---
Date and Time of Service: 05/04/2017 8:02 AM Interval History: Subjective She's complaining from diarrhea today she early went 3 times. Abdominal pain seems to be improved. No nausea no vomiting. She had some headache yesterday and that's resolved. Yesterday apparently there was some argument between her daughters in front of her and she was upset, and the the daughter wanted more explanations about her condition and this was the first time we met with her. we went again to the patient's room with the daughter, nurse onesimo and manufacturing planner Qing, we talked with the patient and explain things again to them and they seem satisfied with the answers. I came also in the afternoon and explain things to them again and updated them about the repeat CT findings and I answered all the questions. Objective : Data - Labs CBC and BMP: 05/04/17 04:16 05/04/17 04:16 Objective : Exam - General General Appearance: No Acute Distress, Cooperative, Obese - Head Head Exam: Normal Inspection - Eye Eye Exam: Normal Appearance - ENT ENT Exam: Normal Exam - Neck Neck Exam: Normal Inspection - Respiratory Respiratory Exam: Clear to Auscultation - Bilaterally - Cardiovascular Cardiovascular Exam: RRR - GI/Abdominal GI/Abdominal Exam: Normal Bowel Sounds, Non Distended, Soft Additional GI/Abdominal Exam Details: There is no significant tenderness and no rebound. - Rectal Rectal Exam: Deferred - External Exam: Deferred - Extremities Extremities Exam: Normal Inspection - Back Back Exam: Normal Inspection - Neurological Neurological Exam: Alert, Oriented x 3, CN II-XII Intact, Moves All Extremities Equally - Psychiatric Psychiatric Exam: Normal Affect Assessment and Plan - Patient Problems (1) Pancreatitis Current Visit: Yes Status: Acute Comment: This is seem to be less likely now. The impression is that is either she had some kind of for bowel ischemia as the repeat CT did show calcification in the SMA and the dehydration contradicted to the reduced blood flow, the positive blood in the stool also goes with this. There is also may be a duodenitis so the plan for her is to have t and EGD on Saturday. Dr. Noel thinks another differential is sclerosing mesenteritis though I am not sure that would cause the blood in the stool. Her LFTs seem to be improving Code(s): K85.90 - Acute pancreatitis without necrosis or infection, unspecified (2) Sepsis Current Visit: Yes Status: Acute Comment: This is resolved Code(s): A41.9 - Sepsis, unspecified organism (3) Diabetes Current Visit: Yes Status: Acute Comment: Continue holding metformin Code(s): E11.9 - Type 2 diabetes mellitus without complications (4) Diarrhea Current Visit: Yes Status: Acute Comment: Maybe related to antibiotics or related to the bowel ischemic event that she had. C. difficile is negative I think we can give her some symptomatic treatment with Imodium. Continue hydration for another day. Code(s): R19.7 - Diarrhea, unspecified
[2017-05-04] MEDS: Pantoprazole Inj 40 MG in Normal Saline Flush 10 ML IVP SCH (08:56)
[2017-05-04] MEDS: DIFLUPREDNATE RIGHT EYE SCH ×2 (08:57→22:03)
[2017-05-04] MEDS: Loperamide Tab 2 MG TABLET PO PRN (09:06)
[2017-05-04] MEDS: cefTRIAXone Inj 2 GM in Sodium Chloride 0.9% 100 ML IV SCH (10:10)
[2017-05-04] MEDS: Sodium Chloride 0.9% 1,000 ML PRIMARY IV SCH (10:11)
[2017-05-04] MEDS ORDERED: ACETAMINOPHEN 325 MG TABLET PO PRN (12:34)
[2017-05-04] MEDS ORDERED: ACETAMINOPHEN 325 MG TABLET PO ONE (13:00)
[2017-05-04] MEDS: Pravastatin Tab 20 MG TAB PO SCH (22:03)
[2017-05-05] MEDS: Sodium Chloride 0.9% 1,000 ML PRIMARY IV SCH (00:20)
[2017-05-05] MEDS: Loperamide Tab 2 MG TABLET PO PRN (00:24)
[2017-05-05] MEDS: metroNIDAZOLE 500mg (Premix) 500 MG/100 ML BAG IV SCH ×3 (02:20→17:49)
[2017-05-05] MEDS: LEVOTHYROXINE 25 MCG TABLET PO SCH (04:32)
[2017-05-05 05:25] LABS: BLOOD UREA NITROGEN 6 mg/dL (7-22); BUN/CREATININE RATIO 6.66 (6-20); SERUM ALBUMIN 3.3 g/dL (3.5-4.8)
--- NOTE | 2017-05-05 07:41 | PDOC(PROG) ---
Date and Time of Service: 05/05/2017 7:38 AM Interval History: Subjective Patient seems to be upset. When I tried to figure out what's bothering her she mentioned a few things that includes being confined to the bed, not able to get up without calling for help, headaches, continue to have the abdominal pain, having diarrhea, doesn't understand what's going on. I spoke with the patient's before in the presence of her daughter and explained to her things a few times and I went again through things. I did explain to her it is necessary for the nurses to come in to make sure that she is safe when she stands up, the etiology of the inflammation of the mesentery it's not clear but we looking at the duodenum if there is inflammatory processes the other possibility is may be a problem with blood flow because of the calcifications in the vessels that's might trigger the inflammation that we are seeing basically mesenteric ischemia . The diarrhea that's bothering her could be the effect of what happened or medication effect so since this is really bothering her I think we'll continue only with the Flagyl I told her. I told her there is a plan for her to have the EGD tomorrow and may be CTA tomorrow if no abnormalities on the EGD. She reiterated that she wants to go home so I told her we will discharge her home after all this testing. Regarding the headaches I did explain to her that we can do more testing though I think it's more tension headache she refuses any other tests she said. She said she can't sleep and I offered her tsleep aid and she declined. To me she does not appear to be in pain she does appear upset. The last time she had morphine was on the . All what she got was Tylenol yesterday. Objective : Data - Labs CBC and BMP: 05/04/17 04:16 05/05/17 04:00 Objective : Exam - General General Appearance: Cooperative, Obese - Head Head Exam: Normal Inspection - Eye Eye Exam: Normal Appearance - ENT ENT Exam: Normal Exam - Neck Neck Exam: Normal Inspection - Respiratory Respiratory Exam: Clear to Auscultation - Bilaterally - Cardiovascular Cardiovascular Exam: RRR - GI/Abdominal GI/Abdominal Exam: Soft Additional GI/Abdominal Exam Details: Soft, obese, there is some minimal tenderness in the epigastrium. No rebound. Bowel sounds present. - Rectal Rectal Exam: Deferred - External Exam: Deferred - Extremities Extremities Exam: Normal Inspection - Back Back Exam: Normal Inspection - Neurological Neurological Exam: Alert, Oriented x 3, CN II-XII Intact, Moves All Extremities Equally - Integumentary Integumentary Exam: Normal Color Assessment and Plan - Patient Problems (1) Pancreatitis Current Visit: Yes Status: Acute Comment: This is seem less likely with thinking either duodenitis or more ischemic event that affected the duodenum. Dr. Noel raised the possibility of early phase sclerosing mesenteritis. Although description on CT does not mention a mass. Very difficult to feel a clear mass. She is obese. There is blood in the stool which I don't think it goes with it. She'll have an EGD tomorrow and CTA tomorrow. For the positive occult blood she'll get an EGD tomorrow and she need colonoscopy as as an outpatient Code(s): K85.90 - Acute pancreatitis without necrosis or infection, unspecified (2) Sepsis Current Visit: Yes Status: Acute Comment: This is resolved. I think we'll continue only with the Flagyl. Blood culture are negative. White count improved. She continued to complain from diarrhea and I think maybe the antibiotic is contributing to this so will continue only with the Flagyl for now. Code(s): A41.9 - Sepsis, unspecified organism (3) Diabetes Current Visit: Yes Status: Acute Comment: Continue holding her metformin Code(s): E11.9 - Type 2 diabetes mellitus without complications (4) Diarrhea Current Visit: Yes Status: Acute Comment: Either secondary to the inflammation or secondary to the zosyn as I said we'll DC the Rocephin since blood culture are still negative. White count improved and fever is gone. Code(s): R19.7 - Diarrhea, unspecified
[2017-05-05] MEDS: POTASSIUM CHLORIDE 20 MEQ TAB PO SCH (09:10)
[2017-05-05] MEDS: DIFLUPREDNATE RIGHT EYE SCH ×2 (09:10→21:52)
[2017-05-05] MEDS: Pravastatin Tab 20 MG TAB PO SCH (21:52)
[2017-05-06] MEDS: metroNIDAZOLE 500mg (Premix) 500 MG/100 ML BAG IV SCH ×2 (02:46→14:11)
[2017-05-06] MEDS: LEVOTHYROXINE 25 MCG TABLET PO SCH (05:20)
[2017-05-06] MEDS ORDERED: PANTOPRAZOLE 40 MG TABLET PO SCH (07:00)
[2017-05-06] MEDS: MORPHINE SULFATE 2 MG/1 ML IVP PRN (09:42)
[2017-05-06] MEDS ORDERED: Lactated Ringers 1,000 ML PRIMARY IV SCH (11:45)
[2017-05-06] MEDS ORDERED: Propofol 200 MG/20 ML VIAL IV ONE (12:46)
[2017-05-06] MEDS ORDERED: PROPOFOL 10 MG/1 ML (200 MG/20 ML) VIAL IV ONE (12:46)
[2017-05-06] MEDS ORDERED: LIDOCAINE W/ SODIUM BICARB 0.5 ML SYR ONE (13:10)
--- NOTE | 2017-05-06 13:42 | GEN.OPNOTE ---
EGD Operative Note Surgery Date: 05/06/17 Preoperative Diagnosis: Abdominal pain Postoperative Diagnosis: Gastritis Procedure: Esophagogastroduodenoscopy with biopsy Surgeon: Thad Feliz MD Anesthesia Provider: Tereza Randall CRNA Anesthesia Type: MAC Indications: 81-year-old female came in with diarrhea and epigastric abdominal pain. Diarrhea subsided still has occasional pain Findings: Esophagus: Lives video EGD scope scope inserted the posterior pharynx. Kind temporization esophagus. Patient is esophagus appeared be normal except tortuous GE Junction : GE junction approximately 30 cm from incisors Fundus : Scope retroflexed on itself revealing the fundus. Fundus was appeared to be normal Body : Body the stomach appeared be normal Prepyloric : Prepyloric area had a lot of bile in the area. She also had what appeared to be chronic gastritis. Small Intestine : First second third portion of the duodenum appeared be normal A lubricated flexible upper endoscope was inserted passed through the esophagus and stomach into the duodenum. Additional Details: At this point would add Carafate to the patient's medical management.
[2017-05-06] MEDS ORDERED: Influenza 17-18 Vaccine (6mo+) Quad 60mcg/0.5ml PF IM ONE (13:45)
[2017-05-06] MEDS: POTASSIUM CHLORIDE 20 MEQ TAB PO SCH (13:51)
[2017-05-06] MEDS: DIFLUPREDNATE RIGHT EYE SCH (13:51)
--- NOTE | 2017-05-06 14:59 | CRNA.PROGR ---
Anesthesia Time - - Start date: 05/06/17 End date: 05/06/17 - Procedure/Recovery Time Anesthesia : Time In: 12:21 Anesthesia : Time Out: 13:41 Anesthesia : Total Time: 80 - Total Anesthesia Time Total Anesthesia Time (minutes): 80 - Other Weight: 79.832 kg Height: 5 ft 2 in Body Mass Index (BMI): 32.1 Physical Status: P3 (Age 81,obesity,abdominal pain,) Anesthesia Type: MAC
--- NOTE | 2017-05-06 15:00 | CRNA.PROGR ---
Post Anesthesia Phase II - Post Anesthesia Phase II Patient Stable and Discharged To: Med/Surg Care Assumed By Surgeon: Dariel Feliz MD Temperature: 98.1 F Pulse Rate: 76 Respiratory Rate: 20 Blood Pressure: 137/73 Pulse Ox: 93 Total Yazan Score at Discharge: 9 Post Anesthesia Discharge Criteria Met: Yes
[2017-05-06] MEDS ORDERED: Sucralfate Tab 1 GM TAB PO ONE (15:19)
[2017-05-06] MEDS: Sucralfate Tab 1 GM TAB PO SCH ×2 (15:23→19:02)
[2017-05-06 18:54] VITALS: BP 150/71; RESP 18; TEMP 98; O2SAT 93
--- NOTE | 2017-05-06 19:05 | DCSUMMARY ---
Hospitalization Summary Admit Date: 05/02/17 Discharge Date: 05/06/17 Hospital Course: Discharge diagnoses 1. Sepsis resolved 2. 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 Chronic gastritis 5. Extensive calcifications in the celiac axis and in the splenic as well as the proper hepatic arteries and at the origin of the superior mesenteric artery. 6. History of hypertension 7. Diabetes 8. Obesity 9. Hepatomegaly with fatty infiltration 10. Abnormal LFTs improving 11. History of previous pancreatitis 12. History of cholecystectomy 13. Hypothyroidism 14. Positive occult stool Hospital course This is an 81 years old female with medical history significant for history of diabetes, hypothyroidism, hypertension who came into the hospital with history of diarrhea that started 2 days prior to admission when she had some liquid stool there was no blood that she could see and the night before admission she started to have abdominal pain felt in the right upper quadrant and goes to the back was severe associated with dry heaving pain persisted because of that she came into the ER she thought she had some fever but she didn't check her temperature. In the ER she was given fluids evaluation revealed elevated white count, elevated lactate, CT of the abdomen showed peripancreatic inflammatory changes suggestive of pancreatitis and there is also mesenteric stranding and she was admitted. Her pain initially was severe she said but by the time I saw her pain came down. The picture when she came in suggested sepsis and that's based on the fever that she had, elevated white count, tachycardia and elevated lactate, we gave her fluid, blood culture was taken and we put her on antibiotics. The source of the fever was pointing to an intra-abdominal process. Although the radiologist mentioned pancreatitis. Her lipase and amylase remained normal so we thought that was unlikely. Our suspicion was that maybe she had mesenteric ischemia that responded to antibiotic and fluid, the presence of extensive calcification support this. the other complicating factor in the diagnosis was the presence of stranding in the mesentery, this raises the possibility of another diagnosis which is a sclerosing mesenteritis. This is a difficult diagnosis to make. She is obese so it's hard to feel a distinct mass. But the fever, the abdominal pain and dry heaving and the CT picture raises this as in the differential. We did another CT which showed no changes in the appearance of the mesentery. I did consult surgery she had an EGD done which showed chronic gastritis. We did adjust antibiotics because of slight elevation in the LFTs that's was gradually trending down. I did tell her about the possibility of sclerosing mesenteritis and she need a repeat CT in 4-6 week , although we thought will do another CT as a CTA in this admission we decided to postpone it to be done later on to look at the changes in the appearance of the mesentery, which if showed the same findings like this time the diagnosis of sclerosing mesenteritis would be high on the list. Its diagnosis that can not be made until a biopsy is taken. For the presence of occult stool in the blood pressure she need to have a colonoscopy at one point as an outpatient. She will follow-up with Dr. Feliz. She need also follow up with her physician as an outpatient. She did have diarrhea and we did send stool for C. difficile which was negative, culture was negative but occult stool as said was positive and at one point she need to have a colonoscopy. I Saw the patient on the day of discharge after the EGD she ate she walked and tolerated diet so we thought that she can be discharged home and follow-up with her primary and Dr. Feliz. We did discharge her on Protonix and Carafate. We discontinued antibiotics as the blood culture remained negative white count improved and she did not have recurrence of her fever. Laboratory Results 05/01/17 05/01/17 05/01/17 Range/Units 23:25 23:25 23:25 WBC 20.88 H (4.8-10.8) 10^3/uL RBC 4.33 (4.20-5.40) 10^6/uL Hgb 14.1 (12.0-16.0) g/dL Hct 41.0 (37.0-47.0) % MCV 94.7 (81-99) FL MCH 32.6 H (27-31) PG MCHC 34.4 (33-37) g/dL RDW Std Deviation 41.7 (39-50) fL RDW Coeff of [place] 12.3 (11.5-14.5) % Plt Count 298 (140-350) 10*3/uL MPV 9.5 (7.4-12.2) FL Immature Gran % (Auto) 0.2 (0-5) % Neut % (Auto) 84.3 H (50-80) % Lymph % (Auto) 8.3 L (10-50) % [place] % (Auto) 6.8 (5-15) % Eos % (Auto) 0.2 (0-8) % Baso % (Auto) 0.2 (0-1) % Immature Gran # (Auto) 0.05 10*3/UL Neut # (Auto) 17.59 10*3/UL Lymph # (Auto) 1.74 10*3/uL [place] # (Auto) 1.41 H (0.3-0.8) 10*3/UL Eos # (Auto) 0.04 10*3/UL Baso # (Auto) 0.05 10*3/UL WBC Morphology Comment Normal morphology (NORM) Plt Morphology Comment Normal morphology (NORM) RBC Morph Comment Normal morphology (NORM) Sodium 135 (135-145) meq/L Potassium 4.6 (3.8-5.2) meq/L Chloride 99 (98-112) meq/L Carbon Dioxide 21 L (23-33) meq/L Anion Gap 15 (5-20) BUN 20 (7-22) mg/dL Creatinine 1.0 (0.50-1.20) mg/dL BUN/Creatinine Ratio 20.00 (6-20) Glucose 231 H (78-110) mg/dL Calculated Osmolality 289.0 (267-292) mOsm/kg Lactic Acid (0.70-2.10) MMOL/L Calcium 10.0 (8.7-10.7) mg/dL Magnesium 1.5 L (1.6-2.4) mg/dL Total Bilirubin 0.6 (0.3-1.2) mg/dL AST 35 (8-39) IU/L ALT 53 H (9-52) IU/L Alkaline Phosphatase 76 (38-126) IU/L Total Protein 7.3 (6.1-8.0) g/dL Albumin 4.4 (3.5-4.8) g/dL Globulin 2.9 (2.50-4.10) g/dL Albumin/Globulin Ratio 1.50 (1.3-2.0) mg/g Amylase 72 (30-110) U/L Lipase 92 (23-300) IU/L Ur Collection Type Urine Color (Y) Urine Clarity (CLEAR) Urine pH (5.0-8.5) Ur Specific [place] (1.005-1.030) Urine Protein (NEG) mg/dl Urine Glucose (UA) (NEG) mg/dL Urine Ketones (NEG) Urine Occult Blood (NEG) Urine Nitrate (NEG) Urine Bilirubin (NEG) Urine Urobilinogen (0.2) EU/dL Ur Leukocyte Esterase (NEG) Ur Culture Indicated? Stool Occult Blood (NEGATIVE) 05/02/17 05/02/17 05/02/17 Range/Units 00:07 04:30 07:07 WBC 13.19 H (4.8-10.8) 10^3/uL RBC 3.99 L (4.20-5.40) 10^6/uL Hgb 12.9 (12.0-16.0) g/dL Hct 38.3 (37.0-47.0) % MCV 96.0 (81-99) FL MCH 32.3 H (27-31) PG MCHC 33.7 (33-37) g/dL RDW Std Deviation 42.2 (39-50) fL RDW Coeff of [place] 12.3 (11.5-14.5) % Plt Count 255 (140-350) 10*3/uL MPV 9.4 (7.4-12.2) FL Immature Gran % (Auto) 0.2 (0-5) % Neut % (Auto) 79.6 (50-80) % Lymph % (Auto) 12.1 (10-50) % [place] % (Auto) 6.1 (5-15) % Eos % (Auto) 1.8 (0-8) % Baso % (Auto) 0.2 (0-1) % Immature Gran # (Auto) 0.02 10*3/UL Neut # (Auto) 10.51 10*3/UL Lymph # (Auto) 1.59 10*3/uL [place] # (Auto) 0.80 (0.3-0.8) 10*3/UL Eos # (Auto) 0.24 10*3/UL Baso # (Auto) 0.03 10*3/UL WBC Morphology Comment Normal morphology (NORM) Plt Morphology Comment Normal morphology (NORM) RBC Morph Comment Normal morphology (NORM) Sodium (135-145) meq/L Potassium (3.8-5.2) meq/L Chloride (98-112) meq/L Carbon Dioxide (23-33) meq/L Anion Gap (5-20) BUN (7-22) mg/dL Creatinine (0.50-1.20) mg/dL BUN/Creatinine Ratio (6-20) Glucose (78-110) mg/dL Calculated Osmolality (267-292) mOsm/kg Lactic Acid 3.1 H (0.70-2.10) MMOL/L Calcium (8.7-10.7) mg/dL Magnesium (1.6-2.4) mg/dL Total Bilirubin (0.3-1.2) mg/dL AST (8-39) IU/L ALT (9-52) IU/L Alkaline Phosphatase (38-126) IU/L Total Protein (6.1-8.0) g/dL Albumin (3.5-4.8) g/dL Globulin (2.50-4.10) g/dL Albumin/Globulin Ratio (1.3-2.0) mg/g Amylase (30-110) U/L Lipase (23-300) IU/L Ur Collection Type Clean catch urine Urine Color Yellow (Y) Urine Clarity Clear (CLEAR) Urine pH 6.0 (5.0-8.5) Ur Specific [place] 1.010 (1.005-1.030) Urine Protein Negative (NEG) mg/dl Urine Glucose (UA) Negative (NEG) mg/dL Urine Ketones Negative (NEG) Urine Occult Blood Negative (NEG) Urine Nitrate Negative (NEG) Urine Bilirubin Negative (NEG) Urine Urobilinogen 0.2 (0.2) EU/dL Ur Leukocyte Esterase Negative (NEG) Ur Culture Indicated? Culture not set Stool Occult Blood (NEGATIVE) 05/02/17 05/02/17 05/03/17 Range/Units 07:07 07:07 04:55 WBC 8.65 (4.8-10.8) 10^3/uL RBC 3.94 L (4.20-5.40) 10^6/uL Hgb 12.8 (12.0-16.0) g/dL Hct 38.5 (37.0-47.0) % MCV 97.7 (81-99) FL MCH 32.5 H (27-31) PG MCHC 33.2 (33-37) g/dL RDW Std Deviation 43.6 (39-50) fL RDW Coeff of [place] 12.5 (11.5-14.5) % Plt Count 252 (140-350) 10*3/uL MPV 9.9 (7.4-12.2) FL Immature Gran % (Auto) 0.1 (0-5) % Neut % (Auto) 55.3 (50-80) % Lymph % (Auto) 28.8 (10-50) % [place] % (Auto) 9.7 (5-15) % Eos % (Auto) 5.8 (0-8) % Baso % (Auto) 0.3 (0-1) % Immature Gran # (Auto) 0.01 10*3/UL Neut # (Auto) 4.78 10*3/UL Lymph # (Auto) 2.49 10*3/uL [place] # (Auto) 0.84 H (0.3-0.8) 10*3/UL Eos # (Auto) 0.50 10*3/UL Baso # (Auto) 0.03 10*3/UL WBC Morphology Comment Normal morphology (NORM) Plt Morphology Comment Normal morphology (NORM) RBC Morph Comment Normal morphology (NORM) Sodium 139 (135-145) meq/L Potassium 4.4 (3.8-5.2) meq/L Chloride 103 (98-112) meq/L Carbon Dioxide 25 (23-33) meq/L Anion Gap 11 (5-20) BUN 18 (7-22) mg/dL Creatinine 1.0 (0.50-1.20) mg/dL BUN/Creatinine Ratio 18.00 (6-20) Glucose 152 H (78-110) mg/dL Calculated Osmolality 292.0 (267-292) mOsm/kg Lactic Acid 2.3 H (0.70-2.10) MMOL/L Calcium 9.1 (8.7-10.7) mg/dL Magnesium (1.6-2.4) mg/dL Total Bilirubin 0.7 (0.3-1.2) mg/dL AST 121 H (8-39) IU/L ALT 113 H D (9-52) IU/L Alkaline Phosphatase 61 (38-126) IU/L Total Protein 6.3 (6.1-8.0) g/dL Albumin 3.7 (3.5-4.8) g/dL Globulin 2.7 (2.50-4.10) g/dL Albumin/Globulin Ratio 1.30 (1.3-2.0) mg/g Amylase 40 (30-110) U/L Lipase 106 (23-300) IU/L Ur Collection Type Urine Color (Y) Urine Clarity (CLEAR) Urine pH (5.0-8.5) Ur Specific [place] (1.005-1.030) Urine Protein (NEG) mg/dl Urine Glucose (UA) (NEG) mg/dL Urine Ketones (NEG) Urine Occult Blood (NEG) Urine Nitrate (NEG) Urine Bilirubin (NEG) Urine Urobilinogen (0.2) EU/dL Ur Leukocyte Esterase (NEG) Ur Culture Indicated? Stool Occult Blood (NEGATIVE) 05/03/17 05/03/17 05/04/17 Range/Units 04:55 16:11 04:16 WBC 6.94 (4.8-10.8) 10^3/uL RBC 3.79 L (4.20-5.40) 10^6/uL Hgb 12.1 (12.0-16.0) g/dL Hct 36.6 L (37.0-47.0) % MCV 96.6 (81-99) FL MCH 31.9 H (27-31) PG MCHC 33.1 (33-37) g/dL RDW Std Deviation 41.5 (39-50) fL RDW Coeff of [place] 12.2 (11.5-14.5) % Plt Count 267 (140-350) 10*3/uL MPV 9.9 (7.4-12.2) FL Immature Gran % (Auto) 0.1 (0-5) % Neut % (Auto) 56.2 (50-80) % Lymph % (Auto) 27.1 (10-50) % [place] % (Auto) 11.0 (5-15) % Eos % (Auto) 4.9 (0-8) % Baso % (Auto) 0.7 (0-1) % Immature Gran # (Auto) 0.01 10*3/UL Neut # (Auto) 3.90 10*3/UL Lymph # (Auto) 1.88 10*3/uL [place] # (Auto) 0.76 (0.3-0.8) 10*3/UL Eos # (Auto) 0.34 10*3/UL Baso # (Auto) 0.05 10*3/UL WBC Morphology Comment Normal morphology (NORM) Plt Morphology Comment Normal morphology (NORM) RBC Morph Comment Normal morphology (NORM) Sodium 139 (135-145) meq/L Potassium 4.2 (3.8-5.2) meq/L Chloride 107 (98-112) meq/L Carbon Dioxide 22 L (23-33) meq/L Anion Gap 10 (5-20) BUN 13 (7-22) mg/dL Creatinine 0.9 (0.50-1.20) mg/dL BUN/Creatinine Ratio 14.44 (6-20) Glucose 140 H (78-110) mg/dL Calculated Osmolality 289.0 (267-292) mOsm/kg Lactic Acid (0.70-2.10) MMOL/L Calcium 8.6 L (8.7-10.7) mg/dL Magnesium (1.6-2.4) mg/dL Total Bilirubin 0.5 (0.3-1.2) mg/dL AST 73 H (8-39) IU/L ALT 134 H (9-52) IU/L Alkaline Phosphatase 63 (38-126) IU/L Total Protein 6.2 (6.1-8.0) g/dL Albumin 3.5 (3.5-4.8) g/dL Globulin 2.7 (2.50-4.10) g/dL Albumin/Globulin Ratio 1.20 L (1.3-2.0) mg/g Amylase (30-110) U/L Lipase (23-300) IU/L Ur Collection Type Urine Color (Y) Urine Clarity (CLEAR) Urine pH (5.0-8.5) Ur Specific [place] (1.005-1.030) Urine Protein (NEG) mg/dl Urine Glucose (UA) (NEG) mg/dL Urine Ketones (NEG) Urine Occult Blood (NEG) Urine Nitrate (NEG) Urine Bilirubin (NEG) Urine Urobilinogen (0.2) EU/dL Ur Leukocyte Esterase (NEG) Ur Culture Indicated? Stool Occult Blood Positive (NEGATIVE) 05/04/17 05/05/17 Range/Units 04:16 04:00 WBC (4.8-10.8) 10^3/uL RBC (4.20-5.40) 10^6/uL Hgb (12.0-16.0) g/dL Hct (37.0-47.0) % MCV (81-99) FL MCH (27-31) PG MCHC (33-37) g/dL RDW Std Deviation (39-50) fL RDW Coeff of [place] (11.5-14.5) % Plt Count (140-350) 10*3/uL MPV (7.4-12.2) FL Immature Gran % (Auto) (0-5) % Neut % (Auto) (50-80) % Lymph % (Auto) (10-50) % [place] % (Auto) (5-15) % Eos % (Auto) (0-8) % Baso % (Auto) (0-1) % Immature Gran # (Auto) 10*3/UL Neut # (Auto) 10*3/UL Lymph # (Auto) 10*3/uL [place] # (Auto) (0.3-0.8) 10*3/UL Eos # (Auto) 10*3/UL Baso # (Auto) 10*3/UL WBC Morphology Comment (NORM) Plt Morphology Comment (NORM) RBC Morph Comment (NORM) Sodium 135 139 (135-145) meq/L Potassium 4.0 3.6 L (3.8-5.2) meq/L Chloride 106 107 (98-112) meq/L Carbon Dioxide 22 L 21 L (23-33) meq/L Anion Gap 7 11 (5-20) BUN 9 6 L (7-22) mg/dL Creatinine 0.9 0.9 (0.50-1.20) mg/dL BUN/Creatinine Ratio 10.00 6.66 (6-20) Glucose 137 H 152 H (78-110) mg/dL Calculated Osmolality 280.0 288.0 (267-292) mOsm/kg Lactic Acid (0.70-2.10) MMOL/L Calcium 8.9 8.7 (8.7-10.7) mg/dL Magnesium (1.6-2.4) mg/dL Total Bilirubin 0.5 0.4 (0.3-1.2) mg/dL AST 39 25 (8-39) IU/L ALT 88 H 75 H (9-52) IU/L Alkaline Phosphatase 59 57 (38-126) IU/L Total Protein 6.1 6.0 L (6.1-8.0) g/dL Albumin 3.3 L 3.3 L (3.5-4.8) g/dL Globulin 2.8 2.7 (2.50-4.10) g/dL Albumin/Globulin Ratio 1.10 L 1.20 L (1.3-2.0) mg/g Amylase (30-110) U/L Lipase (23-300) IU/L Ur Collection Type Urine Color (Y) Urine Clarity (CLEAR) Urine pH (5.0-8.5) Ur Specific [place] (1.005-1.030) Urine Protein (NEG) mg/dl Urine Glucose (UA) (NEG) mg/dL Urine Ketones (NEG) Urine Occult Blood (NEG) Urine Nitrate (NEG) Urine Bilirubin (NEG) Urine Urobilinogen (0.2) EU/dL Ur Leukocyte Esterase (NEG) Ur Culture Indicated? Stool Occult Blood (NEGATIVE) Discharge instruction Diet regular Activity as started Medications Current Medication(s) 3 Medication Instructions Recorded Confirmed Type Calcium Carbonate/Vitamin D3 1 tab PO DAILY 09/28/12 05/01/17 History [Calcium 500 + Vit D Caplet] Multivitamin [One Daily 1 tab PO DAILY 09/28/12 05/01/17 History Multivitamin] Ascorbic Acid [Vitamin C] 1,000 mg PO QD tab 06/09/15 05/01/17 History [place]-3 Fatty Acids [Fish Oil] 300 mg PO QD cap 06/09/15 05/01/17 History Metformin HCl 1 tab PO BID #180 tab 03/15/16 06/08/16 Clinic Cranberry 400 mg PO DAILY 06/08/16 05/01/17 History Darifenacin Hydrobromide [Enablex] 15 mg PO DAILY #30 tab 10/18/16 05/01/17 Rx Levothyroxine Sodium [Synthroid] 1 tab PO QD #90 tab 02/19/17 05/01/17 Rx Lisinopril 1 tab PO DAILY #90 tab 02/19/17 05/01/17 Rx Pravastatin Sodium 1 tab PO DAILY #90 tab 03/26/17 05/01/17 Clinic Metformin HCl 1 tab PO BID #180 tab 03/29/17 05/01/17 Clinic Difluprednate [Durezol] 1 drp RIGHT EYE BID 05/02/17 05/02/17 History Pantoprazole Sodium [Protonix] 40 mg PO AC BK #30 tab 05/06/17 Rx Sucralfate [Carafate] 1 gm PO AC #60 tab 05/06/17 Rx Follow-up with her PCP in 1-[address] Feliz 1-2 weeks Condition at discharge was stable for discharge Exam - Vitals Vital Signs: Vital Signs Temperature 98.0 F Temperature Source Temporal Artery Scan Pulse Rate [Apical] 84 Pulse Rate [Pulse Oximeter 86 Right] Pulse Rate 76 Respiratory Rate 18 Blood Pressure [Right Arm] 150/71 Blood Pressure [Left Arm] 132/72 Blood Pressure 137/73 Pulse Ox 93 Oxygen Flow Rate 2 Oxygen Delivery Method Room Air Height 5 ft 2 in Weight 176 lb Patient Problems - Patient Problem List (1) Pancreatitis Status: Acute Code(s): K85.90 - Acute pancreatitis without necrosis or infection, unspecified Category: Medical (2) Sepsis Status: Acute Code(s): A41.9 - Sepsis, unspecified organism Category: Medical (3) Diabetes Status: Acute Code(s): E11.9 - Type 2 diabetes mellitus without complications Category: Medical (4) Diarrhea Status: Acute Code(s): R19.7 - Diarrhea, unspecified Category: Medical
== END 2017-05-06 19:07 | disposition home or self-care (01) | DRG 438 ==
LOC: ER 23:17 → MED/SURG 05-02 02:12
PROVIDERS: ADMIT Internal Medicine; ATTEND Internal Medicine